=== PATIENT | female | born 1935 | race Caucasian/White ===

== ENCOUNTER 2018-08-29 18:16 | Inpatient (IN) | payer MEDICARE, MEDICAID ==
--- NOTE | 2018-08-29 18:36 | ED Physician Chart ---
ED Chief Complaint/HPI - Patient Information Date Seen:: 08/29/18 Time Seen:: 18:10 Chief Complaint:: Weakness History of Present Illness:: onset x 3 days of weakness and weight loss; no report of trauma, H/As, neck pain , C/P, SOB, Abd. Pain, A/N/V/D/C, fever, chills, or urinary s/s Allergies:: Allergies Allergy/AdvReac Type Severity Reaction Status Date / Time quinine Allergy Verified 08/29/18 18:26 Sulfa (Sulfonamide Allergy Verified 08/29/18 18:26 Antibiotics) Historian:: Patient, EMS Review:: Nurse's Note Reviewed, Old Chart Reviewed, EMS run form Reviewed ED Review of Systems - Review of Systems General/Constitutional: No fever, No chills, No weight loss, Weakness, No diaphoresis, No edema, No loss of appetite Skin: No skin lesions, No rash, No bruising Head: No headache, No light-headedness Eyes: No loss of vision, No pain, No diplopia ENT: No earache, No nasal drainage, No sore throat, No tinnitus Neck: No neck pain, No swelling, No thyromegaly, No stiffness, No mass noted Cardio Vascular: No chest pain, No palpitations, No PND, No orthopnea, No edema Pulmonary: No SOB, No cough, No sputum, No wheezing GI: No nausea, No vomiting, No diarrhea, No pain, No melena, No hematochezia, No constipation, No hematemesis G/U: No dysuria, No frequency, No hematuria, No nacturia Title I Instructional Assistant: No vaginal discharge, No abnormal vaginal bleed, No contraction Musculoskeletal: No bone or joint pain, No back pain, No muscle pain Endocrine: No polyuria, No polydipsia Psychiatric: Prior psych history, Depression, Anxiety, No suicidal ideation, No homicidal ideation, No auditory hallucination, No visual hallucination Hematopoietic: No bruising, No lymphadenopathy Allergic/Immuno: No urticaria, No angioedema Neurological: No syncope, No focal symptoms, Weakness, No paresthesia, No headache, No seizure, No dizziness, No confusion, No vertigo ED Past Medical History - Past Medical History Obtainable: Yes Past Medical History: HTN Family History: HTN Social History: Non Smoker, No Alcohol, No Drug Use, , Care Facility Surgical History: None Psychiatricy History: Bipolar Medication: Reviewed ED Physical Exam - Physical Examination General/Constitutional: Awake, Well-developed, well-nourished, Alert, No distress, GCS 15, Non-toxic appearing, Ambulatory Head: Atraumatic Eyes: Lids, conjuctiva normal, PERRL, EOMI Skin: Nl inspection, No rash, No skin lesions, No ecchymosis, Well hydrated, No lymphadenopathy ENMT: External ears, nose nl, TM canals nl, Nasal exam nl, Lips, teeth, gums nl , Oropharynx nl, Tonsils nl Neck: Nontender, Full ROM w/o pain, No JVD, No nuchal rigidity, No bruit, No mass, No stridor Respiratory: Nl effort/Exclusion, Clear to Auscultation, No Wheeze/Rhonchi/Rales Cardio Vascular: RRR, No murmur, gallop, rubs, NL S1 S2, Carotid/Femoral/Distal pulses equal bilaterally GI: No tenderness/rebounding/guarding, No organomegaly, No hernia, Normal BS's, Nondistended, No mass/bruits, No McBurney tenderness : No CVA tenderness Extremities: No tenderness or effusion, Full ROM, normal strength in all extremities, No edema, Normal digits & nails Neuro/Psych: Alert/oriented, DTR's symmetric, Normal sensory exam, Normal motor strength, Judgement/insight normal, Mood normal, Normal gait, No focal deficits Misc: Normal back, No paraspinal tenderness ED Septic Shock - . Is Septic Shock (SBP<90, OR Lactate>4 mmol\L) present?: No ED Reassessment (Disposition) - Reassessment Reassessment Condition:: Improved - Diagnosis Diagnosis:: Weight Loss; Weakness
[2018-08-29] MEDS ORDERED: Sodium Chloride 0.9% 1,000 ML IV ONE (18:37)
[2018-08-29 19:02] LABS: % BASOPHILS 0.8 % (0.0-2.0); % EOSINOPHILS 0.1 % (0.0-5.0); % LYMPHOCYTES 5.5 % (20.0-50.0); % MONOCYTES 5.6 % (2.0-10.0); BASOPHILE ABSOLUTE 0.1 Th/cumm (0-0.2); HEMATOCRIT 26.1 % (41.0-60); HEMOGLOBIN 8.7 gm/dL (12-16); LYMPHOCYTE ABSOLUTE 0.7 Th/cmm (1.5-3.0); MEAN CELL VOLUME 79.9 fl (81-100); MEAN CORPUSCULAR HEMOGLOBIN 26.7 pg (27.0-31.0); MEAN CORPUSCULAR HGB CONC 33.4 pg (28.0-36.0); MONOCYTE ABSOLUTE 0.7 Th/cmm (0.3-1.0); NEUTROPHILE ABSOLUTE 10.8 Th/cmm (1.8-8.0); PLATELET COUNT 569 Th/cmm (150-400); RED BLOOD COUNT 3.27 Mil/cmm (3.80-5.20); RED CELL DISTRIBUTION WIDTH 16.3 % (11.5-20.0); WHITE BLOOD COUNT 12.3 Th/cmm (4.8-10.8)
[2018-08-29 19:19] LABS: ALB/GLOB RATIO 0.7 (1.0-1.8); ALBUMIN 2.9 gm/dL (3.7-5.3); ALKALINE PHOSPHATASE 75 U/L (34-104); AMYLASE SERUM 20 U/L (29-103); ANION GAP 12.5 (7.0-16.0); BILIRUBIN,TOTAL 0.2 mg/dL (0.3-1.0); BUN - UREA NITROGEN 34 mg/dL (7-25); CALCIUM SERUM 9.5 mg/dL (8.6-10.3); CARBON DIOXIDE 24.6 mEq/L (21.0-31.0); CHLORIDE 100 mEq/L (98-107); CREATININE KINASE 158 U/L (30-223); GLUCOSE 142 mg/dL (70-105); LIPASE 7 U/L (11-82); POTASSIUM SERUM 4.1 mEq/L (3.5-5.1); SGOT 14 U/L (13-39); SGPT/ALT 9 U/L (7-52); SODIUM SERUM 133 mEq/L (136-145); TOTAL PROTEIN,SERUM 6.8 gm/dL (6.0-8.3)
[2018-08-29 19:20] LABS: URINE SOURCE MIDSTREAM
[2018-08-29 19:21] LABS: URINE BILIRUBIN NEGATIVE (NEGATIVE); URINE BLOOD NEGATIVE (NEGATIVE); URINE GLUCOSE (UA) NEGATIVE (NEGATIVE); URINE KETONE NEGATIVE (NEGATIVE); URINE LEUKOCYTE ESTERASE LARGE (NEGATIVE); URINE MICROSCOPIC INDICATED? YES; URINE NITRATE POSITIVE (NEGATIVE); URINE PH 5.5 (4.6 - 8.0); URINE PROTEIN TRACE mg/dL (NEGATIVE); URINE UROBILINOGEN 0.2 E.U./dL (0.2 - 1.0)
[2018-08-29 19:22] LABS: URINE COLOR YELLOW
[2018-08-29 19:24] LABS: URINE CLARITY CLOUDY (CLEAR)
[2018-08-29 19:27] LABS: URINE BACTERIA 4+ /hpf (NONE SEEN); URINE EPITHELIAL CELLS FEW /lpf (FEW); URINE WBC 50-100 /hpf (0-5)
[2018-08-29] MEDS ORDERED: cefTRIAXone 2 GM in Sodium Chloride 0.9% 100 ML IV ONE (19:29)
[2018-08-29 21:50] VITALS: BP 114/51
[2018-08-29] MEDS ORDERED: Ipratropium Neb 0.5 mg/2.5 mL UD HHN PRN (23:18)
[2018-08-29] MEDS ORDERED: Albuterol Nebulizer 2.5mg/3mL HHN PRN (23:18)
--- NOTE | 2018-08-30 00:01 | History & Physical ---
ADMIT DATE: 08/29/2018 CHIEF COMPLAINT: Generalized weakness. HISTORY OF PRESENT ILLNESS: This is an 83-year-old female with history of hypothyroidism, psych disorder, congestive heart failure, inflammatory bowel disorder, admitted from nursing facility secondary to not feeling well. The patient was brought in the ER, found to be dehydrated and she has urinary tract infection. The patient is admitted for further management. The patient is not a best historian. PAST MEDICAL HISTORY: As mentioned in history of present illness. PAST SURGICAL HISTORY: Unable to obtain from the patient. ALLERGIES: SULFA, QUININE. MEDICATIONS: Lasix, potassium, Tylenol, arginine, ascorbic acid, Cogentin, budesonide, hydralazine, Synthroid, pantoprazole, Seroquel, mesalamine. FAMILY HISTORY: Noncontributory. SOCIAL HISTORY: The patient lives in a assisted. The patient requiring 24-hour total care. REVIEW OF SYSTEMS: This is limited secondary to pain, comatose state. We will try to obtain more detailed review of system at a later date by talking to family members, Mario Milner who is the son ____ [phone], also try to get information from facility in [place], . PHYSICAL EXAMINATION: VITAL SIGNS: Blood pressure 140/81, respiration 18, pulse 84, temperature 98.3. GENERAL: Elderly female, appears her stated age. NECK: Supple. No mass. LUNGS: Equal breath sounds, few rhonchi. HEART: Regular rate and rhythm with systolic ejection murmur. ABDOMEN: Soft, globular. EXTREMITIES: Positive excoriation. NEUROLOGIC: Limited. LABORATORY DATA: WBC 12, hemoglobin 8.7, platelets 569. Sodium 133, potassium 4.1, BUN 34, creatinine 1.0, blood sugar 142, albumin 2.9. UA: 100 wbc's, 4+ bacteria. ASSESSMENT AND PLAN: Generalized weakness, UTI, leukocytosis, anemia, hyponatremia, renal insufficiency/dehydration, hyperglycemia, hypothyroidism and psychiatric disorder. Continue the patient on IV hydration. Monitor for any signs or symptoms of fluid overload. We will follow the patient's urine culture. We will monitor renal function. We will correct the patient's electrolyte abnormalities. We will review the patient's chest x-ray, follow blood culture. We will admit the patient to telemetry. [facility]# [id number]
[2018-08-30] MEDS: D5-0.45NS 1,000 ML IV SCH ×2 (00:22→12:38)
[2018-08-30] MEDS: Pantoprazole 40 mg EC Tab PO SCH (06:39)
[2018-08-30] MEDS: Levothyroxine 0.1 Mg Tab PO SCH (06:39)
[2018-08-30] MEDS: Budesonide 0.5 Mg/2 mL Ud HHN SCH (06:42)
[2018-08-30] MEDS: Benztropine 1 MG TAB PO SCH ×2 (08:54→16:15)
[2018-08-30] MEDS ORDERED: Non-Formulary Item 1 EA (Arginine/Ascorbate Sod/Vite Ac [Arginaid Powder] 1 PACKET) PO SCH (09:00)
[2018-08-30] MEDS ORDERED: MESALAMINE 1.5 GM PO SCH (09:00)
--- NOTE | 2018-08-30 10:18 | Diagnostic Imaging Report ---
Portable chest x-ray HISTORY: Pain The heart is enlarged. Atherosclerotic calcification seen in the aorta. Mild pleural reaction which appears chronic noted about the left costophrenic angle. No acute focal pulmonary parenchymal processes. IMPRESSION: 1. No definite acute abnormalities 2. Cardiomegaly with atherosclerotic vascular changes
--- NOTE | 2018-08-30 13:18 | Internal Medicine Prog Note ---
Internal Medicine Subjective - Subjective Patient seen and examined:: with staff, chart reviewed, other (son at bedside) Patient is:: asleep, non-verbal, non-interactive, in bed Patient Complaints of:: congestion Per staff patient has:: no adverse event, no episodes of fall, poor appetite, refusing care Internal Medicine Objective - Results Result Diagrams: 08/29/18 18:50 08/29/18 18:50 Recent Labs: Laboratory Last Values WBC 12.3 Th/cmm (4.8-10.8) H 08/29/18 18:50 RBC 3.27 Mil/cmm (3.80-5.20) L 08/29/18 18:50 Hgb 8.7 gm/dL (12-16) L 08/29/18 18:50 Hct 26.1 % (41.0-60) L 08/29/18 18:50 MCV 79.9 fl (81-100) L 08/29/18 18:50 MCH 26.7 pg (27.0-31.0) L 08/29/18 18:50 MCHC Differential 33.4 pg (28.0-36.0) 08/29/18 18:50 RDW 16.3 % (11.5-20.0) 08/29/18 18:50 Plt Count 569 Th/cmm (150-400) H 08/29/18 18:50 MPV 7.0 fl 08/29/18 18:50 Neutrophils % 88.0 % (40.0-80.0) H 08/29/18 18:50 Lymphocytes % 5.5 % (20.0-50.0) L 08/29/18 18:50 Monocytes % 5.6 % (2.0-10.0) 08/29/18 18:50 Eosinophils % 0.1 % (0.0-5.0) 08/29/18 18:50 Basophils % 0.8 % (0.0-2.0) 08/29/18 18:50 PT 10.4 SECONDS (9.5-11.5) 08/29/18 18:50 INR 1.00 (0.5-1.4) 08/29/18 18:50 PTT (Actin FS) 27.2 SECONDS (26.0-38.0) 08/29/18 18:50 Sodium 133 mEq/L (136-145) L 08/29/18 18:50 Potassium 4.1 mEq/L (3.5-5.1) 08/29/18 18:50 Chloride 100 mEq/L (98-107) 08/29/18 18:50 Carbon Dioxide 24.6 mEq/L (21.0-31.0) 08/29/18 18:50 Anion Gap 12.5 (7.0-16.0) 08/29/18 18:50 BUN 34 mg/dL (7-25) H 08/29/18 18:50 Creatinine 1.0 mg/dL (0.6-1.2) 08/29/18 18:50 Est GFR ( Amer) TNP 08/29/18 18:50 Est GFR (Non-Af Amer) TNP 08/29/18 18:50 BUN/Creatinine Ratio 34.0 08/29/18 18:50 Glucose 142 mg/dL (70-105) H 08/29/18 18:50 Whole Bld Lactic Acid 1.67 mmol/L (0.60-1.99) 08/29/18 18:50 Calcium 9.5 mg/dL (8.6-10.3) 08/29/18 18:50 Total Bilirubin 0.2 mg/dL (0.3-1.0) L 08/29/18 18:50 AST 14 U/L (13-39) 08/29/18 18:50 ALT 9 U/L (7-52) 08/29/18 18:50 Alkaline Phosphatase 75 U/L (34-104) 08/29/18 18:50 Creatine Kinase 158 U/L (30-223) 08/29/18 18:50 Troponin I 0.01 ng/mL (0.01-0.05) 08/29/18 18:50 Total Protein 6.8 gm/dL (6.0-8.3) 08/29/18 18:50 Albumin 2.9 gm/dL (3.7-5.3) L 08/29/18 18:50 Globulin 3.9 gm/dL 08/29/18 18:50 Albumin/Globulin Ratio 0.7 (1.0-1.8) L 08/29/18 18:50 Amylase 20 U/L (29-103) L 08/29/18 18:50 Lipase 7 U/L (11-82) L 08/29/18 18:50 Urine Source MIDSTREAM 08/29/18 19:15 Urine Color YELLOW 08/29/18 19:15 Urine Clarity CLOUDY (CLEAR) H 08/29/18 19:15 Urine pH 5.5 (4.6 - 8.0) 08/29/18 19:15 Ur Specific [place] 1.010 (1.005-1.030) 08/29/18 19:15 Urine Protein TRACE mg/dL (NEGATIVE) 08/29/18 19:15 Urine Glucose (UA) NEGATIVE mg/dL (NEGATIVE) 08/29/18 19:15 Urine Ketones NEGATIVE mg/dL (NEGATIVE) 08/29/18 19:15 Urine Blood NEGATIVE (NEGATIVE) 08/29/18 19:15 Urine Nitrate POSITIVE (NEGATIVE) H 08/29/18 19:15 Urine Bilirubin NEGATIVE (NEGATIVE) 08/29/18 19:15 Urine Urobilinogen 0.2 E.U./dL (0.2 - 1.0) 08/29/18 19:15 Ur Leukocyte Esterase LARGE (NEGATIVE) H 08/29/18 19:15 Urine RBC 2-5 /hpf (0-5) 08/29/18 19:15 Urine WBC 50-100 /hpf (0-5) H 08/29/18 19:15 Ur Epithelial Cells FEW /lpf (FEW) 08/29/18 19:15 Urine Bacteria 4+ /hpf (NONE SEEN) H 08/29/18 19:15 - Physical Exam Vitals and I&O: Vital Signs Temp 97.4 F 08/30/18 11:55 Pulse 71 08/30/18 12:03 Resp 18 08/30/18 11:55 BP 115/46 08/30/18 12:03 Pulse Ox 100 08/30/18 11:55 Intake & Output 08/29/18 08/30/18 08/30/18 18:59 06:59 18:59 Intake Total 981.333 Balance 981.333 Weight (lbs) 55.338 kg Intake: Intake, IV Amount 981.333 D5-0.45NS 1,000 ml @ 80 981.333 mls/hr IV .[id number] [facility] Rx #:[id number] Other: Weight Source Estimated Active Medications: Current Medications Acetaminophen (Tylenol) 650 mg PO Q4H PRN PRN Reason: Pain (Moderate) Stop: 10/29/18 01:02 Albuterol Sulfate (Albuterol 2.5mg/3ml Neb Ud) 2.5 mg HHN Q2HRT PRN PRN Reason: Shortness of Breath or Wheeze Stop: 10/28/18 23:17 Ascorbic Acid (Vitamin C) 500 mg PO DAILY [facility] Stop: 10/29/18 08:59 Last Admin: 08/30/18 08:54 Dose: 500 mg Benztropine Mesylate (Cogentin) 2 mg PO BID [facility] Stop: 10/29/18 08:59 Last Admin: 08/30/18 08:54 Dose: 2 mg Budesonide (Pulmicort) 0.25 mg HHN BIDRT [facility] Stop: 10/29/18 06:59 Last Admin: 08/30/18 06:42 Dose: 0.25 mg Hydralazine HCl (Apresoline) 50 mg PO Q12H [facility] Stop: 10/28/18 23:29 Last Admin: 08/30/18 12:03 Dose: Not Given Cefepime HCl 1 gm/ Dextrose 50 mls @ 100 mls/hr IV Q24H [facility]; Protocol Stop: 10/28/18 23:29 Last Admin: 08/30/18 00:24 Dose: 100 mls/hr Dextrose/Sodium Chloride (D5-0.45ns) 1,000 mls @ 80 mls/hr IV .[id number] [facility] Stop: 10/28/18 23:29 Last Admin: 08/30/18 12:38 Dose: 80 mls/hr Ipratropium [place] (Atrovent Neb 0.5mg/2.5ml) 0.5 mg HHN Q2HRT PRN PRN Reason: Shortness of Breath or Wheeze Stop: 10/28/18 23:17 Levothyroxine Sodium (Synthroid) 0.1 mg PO QDAC [facility] Stop: 10/29/18 07:29 Last Admin: 08/30/18 06:39 Dose: 0.1 mg Loperamide HCl (Imodium) 2 mg PO BID PRN PRN Reason: Diarrhea Stop: 10/28/18 23:15 Miscellaneous (Arginine/Ascorbate Sod/[place] Ac [Arginaid Powder]) 1 packet PO BID [facility] Stop: 10/29/18 08:59 Miscellaneous (Mesalamine [Apriso]) 1.5 gm PO DAILY [facility] Stop: 10/29/18 08:59 Ondansetron HCl (Zofran) 4 mg IV Q8H PRN PRN Reason: Nausea / Vomiting Stop: 10/28/18 23:17 Pantoprazole Sodium (Protonix) 40 mg PO QDAC [facility] Stop: 10/29/18 07:29 Last Admin: 08/30/18 06:39 Dose: 40 mg Quetiapine Fumarate (Seroquel) 25 mg PO HS [facility]; Protocol Stop: 10/29/18 20:59 Vitamin B Complex/Vit C/Folic Acid (Vitamin B Complex W/Vitamin C) 1 tab PO DAILY [facility] Stop: 10/29/18 08:59 General: lethargic, demented HEENT: NC/AT, PERRLA, EOMI Neck: Supple, No JVD Lungs: congested Cardiovascular: RRR, Normal S1, Normal S2, with murmur Abdomen: soft, non-tender, thin, non-distended, positive bowel sound Extremities: excoriation, contracture, ulcers stage 2 Neurological: no change, disorganized - Procedures Procedures: Procedures Procedure Code Date BUNIONECTOMY NEC 77.59 11/25/05 CORRECTION HALLUX VALGUS 32910 11/25/05 GROUP PSYCHOTHERAPY 15374 07/17/03 INDIVID PSYCHOTHERAP NEC 94.39 01/10/05 INTAC GROUP PSYTX 07735 07/16/00 OTHER GROUP THERAPY 94.44 11/02/10 RECREATIONAL THERAPY 93.81 11/02/10 Internal Medicine Assmt/Plan - Assessment Assessment: ASSESSMENT AND PLAN: Generalized weakness, UTI, leukocytosis, anemia, hyponatremia, renal insufficiency/dehydration, hyperglycemia, hypothyroidism and psychiatric disorder. - Plan Plan: PLAN: Continue the patient on IV hydration. Monitor for any signs or symptoms of fluid overload. We will follow the patient's urine culture. We will monitor renal function. We will correct the patient's electrolyte abnormalities. We will review the patient's chest x-ray, follow blood culture. We will admit the patient to telemetry. lolis self and son
[2018-08-30] MEDS: Multivitamin w/ Minerals Tab PO SCH (13:50)
[2018-08-30] MEDS: Vitamin B Complex w/Vitamin C Tab PO SCH (13:50)
--- NOTE | 2018-08-30 22:34 | Consultation ---
DATE OF CONSULTATION: 08/30/2018 INPATIENT GASTROINTESTINAL CONSULTATION REFERRING PHYSICIAN: Dr. Soliz. REASON FOR CONSULTATION: Ulcerative colitis. HISTORY OF PRESENT ILLNESS: This is an 83-year-old female with underlying history of dementia, who was admitted to the hospital because of generalized weakness, was found to have a urinary tract infection. The patient also has a recently diagnosed ulcerative colitis and we are asked to see the patient for the ulcerative colitis. She denies having any abdominal pain. She in fact was eating lunch. She denies any nausea, vomiting. Denies having any diarrhea, denies having any melena, hematochezia, hematemesis, or coffee ground emesis. PAST MEDICAL HISTORY: Hypothyroidism, psych disorder, dementia, congestive heart failure, ulcerative colitis. PAST SURGICAL HISTORY: None to add recently. FAMILY HISTORY: Noncontributory. SOCIAL HISTORY: No tobacco, alcohol or IV drug usage. ALLERGIES: SULFA AND QUININE. CURRENT MEDICATIONS: Tylenol, vitamin C, Cogentin, Pulmicort, cefepime, Apresoline, Atrovent, Synthroid, Imodium, Zofran, Protonix, Seroquel. REVIEW OF SYSTEMS: Ten point review of system was performed and the pertinent positive was the ulcerative colitis, generalized weakness and urinary tract infection. All the systems were otherwise negative. PHYSICAL EXAMINATION: VITAL SIGNS: Temperature 97.4, breathing 18, pulse of 71, blood pressure 115/46, satting 100%. GENERAL: In no apparent distress. EYES: Anicteric. Normal conjunctivae. HEENT: Normocephalic, atraumatic. Moist mucous membranes. NECK: Soft, supple. CHEST: Clear, normal effort. CARDIOVASCULAR: Regular rate and rhythm. ABDOMEN: Soft, nontender, nondistended and normal bowel sounds. SKIN: Warm, dry. EXTREMITIES: Reveal no cyanosis. PSYCHOLOGIC: Alert and oriented x 3. LABORATORY DATA: Show white count 12.3, hemoglobin 8.7, platelets of 569. INR 1. Creatinine 1. Total bilirubin within normal limits. Lipase within normal limits. Urinalysis shows leukocyte esterase positivity. IMPRESSION: An 83-year-old female with urinary tract infection by positive UA, is currently on antibiotics, has also newly diagnosed ulcerative colitis. The patient in the past had been maintained on Apriso. She recently had a colonoscopy approximately [address] Anderson in [place] and according to the son at bedside, the plan was to escalate therapy due to the severity of her disease. They have already picked up Entyvio as the medication and they are awaiting this medication. Unfortunately, this medication is not available here at this hospital, so I would recommend that the patient and family continue to wait. Moreover, the patient does not demonstrate any symptoms that would warrant emergent treatment, specifically she has no abdominal pain, she is tolerating a p.o. diet. She has no fevers. She has no diarrhea or bloody bowel movements and has no abdominal pain. The patient does have microcytic anemia, could be due to iron deficiency. The son tells me that they have outpatient arrangements for iron infusion as well. PLAN: 1. Continue with current management. 2. Keep appointment with Dr. Anderson, her gastrologist. 3. Continue and follow up for the Entyvio treatment and iron confusion. 4. Follow H and H. 5. Treat the urinary tract infection. Thank you for allowing me to participate. Please call me if any questions. JOB# [id number]
[2018-08-31] MEDS: D5-0.45NS 1,000 ML IV SCH ×3 (00:11→16:10)
[2018-08-31] MEDS: Levothyroxine 0.1 Mg Tab PO SCH (06:41)
[2018-08-31] MEDS: Pantoprazole 40 mg EC Tab PO SCH (06:41)
[2018-08-31 06:58] LABS: % BASOPHILS 0.5 % (0.0-2.0); % EOSINOPHILS 5.2 % (0.0-5.0); % LYMPHOCYTES 23.2 % (20.0-50.0); % MONOCYTES 14.6 % (2.0-10.0); % NEUTROPHILS 56.5 % (40.0-80.0); EOSINOPHILE ABSOLUTE 0.3 Th/cmm (0.1-0.4); HEMATOCRIT 22.8 % (41.0-60); LYMPHOCYTE ABSOLUTE 1.2 Th/cmm (1.5-3.0); MEAN CELL VOLUME 79.4 fl (81-100); MEAN CORPUSCULAR HEMOGLOBIN 26.5 pg (27.0-31.0); MEAN CORPUSCULAR HGB CONC 33.4 pg (28.0-36.0); MONOCYTE ABSOLUTE 0.8 Th/cmm (0.3-1.0); PLATELET COUNT 465 Th/cmm (150-400); RED BLOOD COUNT 2.87 Mil/cmm (3.80-5.20); RED CELL DISTRIBUTION WIDTH 15.9 % (11.5-20.0); WHITE BLOOD COUNT 5.3 Th/cmm (4.8-10.8)
[2018-08-31 07:00] LABS: ALB/GLOB RATIO 0.7 (1.0-1.8); ALBUMIN 2.3 gm/dL (3.7-5.3); ALKALINE PHOSPHATASE 56 U/L (34-104); ANION GAP 8.7 (7.0-16.0); BILIRUBIN,TOTAL 0.2 mg/dL (0.3-1.0); BUN - UREA NITROGEN 24 mg/dL (7-25); CALCIUM SERUM 8.9 mg/dL (8.6-10.3); CARBON DIOXIDE 24.2 mEq/L (21.0-31.0); CHLORIDE 106 mEq/L (98-107); CREATININE - SERUM 0.9 mg/dL (0.6-1.2); GLUCOSE 86 mg/dL (70-105); HEMOGLOBIN 7.6 gm/dL (12-16); POTASSIUM SERUM 3.9 mEq/L (3.5-5.1); SGOT 12 U/L (13-39); SGPT/ALT 6 U/L (7-52); SODIUM SERUM 135 mEq/L (136-145); TOTAL PROTEIN,SERUM 5.5 gm/dL (6.0-8.3)
[2018-08-31] MEDS: Budesonide 0.5 Mg/2 mL Ud HHN SCH ×2 (07:18→19:09)
[2018-08-31] MEDS: Vitamin B Complex w/Vitamin C Tab PO SCH (08:28)
[2018-08-31] MEDS: Benztropine 1 MG TAB PO SCH ×2 (08:29→16:10)
[2018-08-31] MEDS: Mesalamine 250 mg ER Cap PO SCH (08:29)
[2018-08-31] MEDS: Multivitamin w/ Minerals Tab PO SCH (08:29)
--- NOTE | 2018-08-31 10:38 | GI Progress Note ---
Subjective - Review of Systems Subjective: NO REPORTS OF DIARRHEA PER STAFF PT DENIES ABD PAIN GI OBJECTIVE - Results Result Diagrams: 08/31/18 06:00 08/31/18 06:00 Recent Labs: Laboratory Last Values WBC 5.3 Th/cmm (4.8-10.8) 08/31/18 06:00 RBC 2.87 Mil/cmm (3.80-5.20) L 08/31/18 06:00 Hgb 7.6 gm/dL (12-16) L* 08/31/18 06:00 Hct 22.8 % (41.0-60) L 08/31/18 06:00 MCV 79.4 fl (81-100) L 08/31/18 06:00 MCH 26.5 pg (27.0-31.0) L 08/31/18 06:00 MCHC Differential 33.4 pg (28.0-36.0) 08/31/18 06:00 RDW 15.9 % (11.5-20.0) 08/31/18 06:00 Plt Count 465 Th/cmm (150-400) H 08/31/18 06:00 MPV 6.8 fl 08/31/18 06:00 Neutrophils % 56.5 % (40.0-80.0) 08/31/18 06:00 Lymphocytes % 23.2 % (20.0-50.0) 08/31/18 06:00 Monocytes % 14.6 % (2.0-10.0) H 08/31/18 06:00 Eosinophils % 5.2 % (0.0-5.0) H 08/31/18 06:00 Basophils % 0.5 % (0.0-2.0) 08/31/18 06:00 PT 10.4 SECONDS (9.5-11.5) 08/29/18 18:50 INR 1.00 (0.5-1.4) 08/29/18 18:50 PTT (Actin FS) 27.2 SECONDS (26.0-38.0) 08/29/18 18:50 Sodium 135 mEq/L (136-145) L 08/31/18 06:00 Potassium 3.9 mEq/L (3.5-5.1) 08/31/18 06:00 Chloride 106 mEq/L (98-107) 08/31/18 06:00 Carbon Dioxide 24.2 mEq/L (21.0-31.0) 08/31/18 06:00 Anion Gap 8.7 (7.0-16.0) 08/31/18 06:00 BUN 24 mg/dL (7-25) 08/31/18 06:00 Creatinine 0.9 mg/dL (0.6-1.2) 08/31/18 06:00 Est GFR ( Amer) TNP 08/31/18 06:00 Est GFR (Non-Af Amer) TNP 08/31/18 06:00 BUN/Creatinine Ratio 26.7 08/31/18 06:00 Glucose 86 mg/dL (70-105) 08/31/18 06:00 Whole Bld Lactic Acid 1.67 mmol/L (0.60-1.99) 08/29/18 18:50 Calcium 8.9 mg/dL (8.6-10.3) 08/31/18 06:00 Total Bilirubin 0.2 mg/dL (0.3-1.0) L 08/31/18 06:00 AST 12 U/L (13-39) L 08/31/18 06:00 ALT 6 U/L (7-52) L 08/31/18 06:00 Alkaline Phosphatase 56 U/L (34-104) 08/31/18 06:00 Ammonia 26 umol/L (16-53) 08/31/18 06:00 Creatine Kinase 158 U/L (30-223) 08/29/18 18:50 Troponin I 0.01 ng/mL (0.01-0.05) 08/29/18 18:50 B-Natriuretic Peptide 164.0 pg/mL (5.0-100.0) H 08/31/18 06:00 Total Protein 5.5 gm/dL (6.0-8.3) L 08/31/18 06:00 Albumin 2.3 gm/dL (3.7-5.3) L 08/31/18 06:00 Globulin 3.2 gm/dL 08/31/18 06:00 Albumin/Globulin Ratio 0.7 (1.0-1.8) L 08/31/18 06:00 Amylase 20 U/L (29-103) L 08/29/18 18:50 Lipase 7 U/L (11-82) L 08/29/18 18:50 Urine Source MIDSTREAM 08/29/18 19:15 Urine Color YELLOW 08/29/18 19:15 Urine Clarity CLOUDY (CLEAR) H 08/29/18 19:15 Urine pH 5.5 (4.6 - 8.0) 08/29/18 19:15 Ur Specific [place] 1.010 (1.005-1.030) 08/29/18 19:15 Urine Protein TRACE mg/dL (NEGATIVE) 08/29/18 19:15 Urine Glucose (UA) NEGATIVE mg/dL (NEGATIVE) 08/29/18 19:15 Urine Ketones NEGATIVE mg/dL (NEGATIVE) 08/29/18 19:15 Urine Blood NEGATIVE (NEGATIVE) 08/29/18 19:15 Urine Nitrate POSITIVE (NEGATIVE) H 08/29/18 19:15 Urine Bilirubin NEGATIVE (NEGATIVE) 08/29/18 19:15 Urine Urobilinogen 0.2 E.U./dL (0.2 - 1.0) 08/29/18 19:15 Ur Leukocyte Esterase LARGE (NEGATIVE) H 08/29/18 19:15 Urine RBC 2-5 /hpf (0-5) 08/29/18 19:15 Urine WBC 50-100 /hpf (0-5) H 08/29/18 19:15 Ur Epithelial Cells FEW /lpf (FEW) 08/29/18 19:15 Urine Bacteria 4+ /hpf (NONE SEEN) H 08/29/18 19:15 - Physical Exam Vitals and I&O: Vital Signs Temp 97 F 08/31/18 08:00 Pulse 61 08/31/18 08:00 Resp 17 08/31/18 08:00 BP 163/73 08/31/18 08:00 Pulse Ox 98 08/31/18 08:00 Intake & Output 08/30/18 08/31/18 08/31/18 18:59 06:59 18:59 Intake Total 561.872 2904 Balance 290.824 4318 Weight (lbs) 60.328 kg Intake: Intake, IV Amount 981.333 974 Cefepime 1 gm In Dextrose 50 5% 50 ml @ 100 mls/hr IV Q24H [facility] Rx#:[id number] D5-0.45NS 1,000 ml @ 80 981.333 924 mls/hr IV .[id number] [facility] Rx #:[id number] Oral 120 Other: # Voids 3 Stool Characteristics Soft Formed Brown Weight Source Bedscale Active Medications: Current Medications Acetaminophen (Tylenol) 650 mg PO Q4H PRN PRN Reason: Pain (Moderate) Stop: 10/29/18 01:02 Albuterol Sulfate (Albuterol 2.5mg/3ml Neb Ud) 2.5 mg HHN Q2HRT PRN PRN Reason: Shortness of Breath or Wheeze Stop: 10/28/18 23:17 Ascorbic Acid (Vitamin C) 500 mg PO DAILY [facility] Stop: 10/29/18 08:59 Last Admin: 08/31/18 08:29 Dose: 500 mg Benztropine Mesylate (Cogentin) 2 mg PO BID [facility] Stop: 10/29/18 08:59 Last Admin: 08/31/18 08:29 Dose: 2 mg Budesonide (Pulmicort) 0.25 mg HHN BIDRT [facility] Stop: 10/29/18 06:59 Last Admin: 08/31/18 07:18 Dose: 0.25 mg Hydralazine HCl (Apresoline) 50 mg PO Q12H [facility] Stop: 10/28/18 23:29 Last Admin: 08/31/18 00:16 Dose: 50 mg Cefepime HCl 1 gm/ Dextrose 50 mls @ 100 mls/hr IV Q24H [facility]; Protocol Stop: 10/28/18 23:29 Last Infusion: 08/31/18 00:34 Dose: Infused Dextrose/Sodium Chloride (D5-0.45ns) 1,000 mls @ 80 mls/hr IV .[id number] [facility] Stop: 10/28/18 23:29 Last Admin: 08/31/18 00:11 Dose: 80 mls/hr Ipratropium [place] (Atrovent Neb 0.5mg/2.5ml) 0.5 mg HHN Q2HRT PRN PRN Reason: Shortness of Breath or Wheeze Stop: 10/28/18 23:17 Levothyroxine Sodium (Synthroid) 0.1 mg PO QDAC [facility] Stop: 10/29/18 07:29 Last Admin: 08/31/18 06:41 Dose: 0.1 mg Loperamide HCl (Imodium) 2 mg PO BID PRN PRN Reason: Diarrhea Stop: 10/28/18 23:15 Mesalamine (Pentasa) 1,500 mg PO DAILY [facility] Stop: 10/30/18 08:59 Last Admin: 08/31/18 08:29 Dose: 1,500 mg Ondansetron HCl (Zofran) 4 mg IV Q8H PRN PRN Reason: Nausea / Vomiting Stop: 10/28/18 23:17 Pantoprazole Sodium (Protonix) 40 mg PO QDAC [facility] Stop: 10/29/18 07:29 Last Admin: 08/31/18 06:41 Dose: 40 mg Quetiapine Fumarate (Seroquel) 25 mg PO HS [facility]; Protocol Stop: 10/29/18 20:59 Last Admin: 08/30/18 20:18 Dose: 25 mg Vitamin B Complex/Vit C/Folic Acid (Vitamin B Complex W/Vitamin C) 1 tab PO DAILY [facility] Stop: 10/29/18 08:59 Last Admin: 08/31/18 08:28 Dose: 1 tab - Procedures Procedures: Procedures Procedure Code Date BUNIONECTOMY NEC 77.59 11/25/05 CORRECTION HALLUX VALGUS 78846 11/25/05 GROUP PSYCHOTHERAPY 04768 07/17/03 INDIVID PSYCHOTHERAP NEC 94.39 01/10/05 INTAC GROUP PSYTX 33712 07/16/00 OTHER GROUP THERAPY 94.44 11/02/10 RECREATIONAL THERAPY 93.81 11/02/10 Assessment/Plan - Assessment Assessment: 83 YO FEMALE WITH NEWLY DIAGNOSED ULCERATIVE COLITIS SEEING OUTSIDE GI WHO HAS SET THE PT UP TO RECEIVE ENTYVIO AND IRON INFUSION CLINICALLY SEEMS TO BE STABLE 1.KEEP OUTPATIENT APPT WITH DR GAYLE (PT'S GI DOC) 2.CONT SUPP CARE AND TREAT UTI PER HOSPITALIST 3.FOLLOW H/H; TRANSFUSE PRN 4.WILL SEE NEEDED; CALL IF QUESTIONS
--- NOTE | 2018-08-31 15:26 | Internal Medicine Prog Note ---
Internal Medicine Subjective - Subjective Patient seen and examined:: with staff, chart reviewed Patient is:: asleep, non-verbal, non-interactive, in bed Patient Complaints of:: congestion Per staff patient has:: no adverse event, no episodes of fall, poor appetite, refusing care Internal Medicine Objective - Results Result Diagrams: 08/31/18 06:00 08/31/18 06:00 Recent Labs: Laboratory Last Values WBC 5.3 Th/cmm (4.8-10.8) 08/31/18 06:00 RBC 2.87 Mil/cmm (3.80-5.20) L 08/31/18 06:00 Hgb 7.6 gm/dL (12-16) L* 08/31/18 06:00 Hct 22.8 % (41.0-60) L 08/31/18 06:00 MCV 79.4 fl (81-100) L 08/31/18 06:00 MCH 26.5 pg (27.0-31.0) L 08/31/18 06:00 MCHC Differential 33.4 pg (28.0-36.0) 08/31/18 06:00 RDW 15.9 % (11.5-20.0) 08/31/18 06:00 Plt Count 465 Th/cmm (150-400) H 08/31/18 06:00 MPV 6.8 fl 08/31/18 06:00 Neutrophils % 56.5 % (40.0-80.0) 08/31/18 06:00 Lymphocytes % 23.2 % (20.0-50.0) 08/31/18 06:00 Monocytes % 14.6 % (2.0-10.0) H 08/31/18 06:00 Eosinophils % 5.2 % (0.0-5.0) H 08/31/18 06:00 Basophils % 0.5 % (0.0-2.0) 08/31/18 06:00 PT 10.4 SECONDS (9.5-11.5) 08/29/18 18:50 INR 1.00 (0.5-1.4) 08/29/18 18:50 PTT (Actin FS) 27.2 SECONDS (26.0-38.0) 08/29/18 18:50 Sodium 135 mEq/L (136-145) L 08/31/18 06:00 Potassium 3.9 mEq/L (3.5-5.1) 08/31/18 06:00 Chloride 106 mEq/L (98-107) 08/31/18 06:00 Carbon Dioxide 24.2 mEq/L (21.0-31.0) 08/31/18 06:00 Anion Gap 8.7 (7.0-16.0) 08/31/18 06:00 BUN 24 mg/dL (7-25) 08/31/18 06:00 Creatinine 0.9 mg/dL (0.6-1.2) 08/31/18 06:00 Est GFR ( Amer) TNP 08/31/18 06:00 Est GFR (Non-Af Amer) TNP 08/31/18 06:00 BUN/Creatinine Ratio 26.7 08/31/18 06:00 Glucose 86 mg/dL (70-105) 08/31/18 06:00 Whole Bld Lactic Acid 1.67 mmol/L (0.60-1.99) 08/29/18 18:50 Calcium 8.9 mg/dL (8.6-10.3) 08/31/18 06:00 Total Bilirubin 0.2 mg/dL (0.3-1.0) L 08/31/18 06:00 AST 12 U/L (13-39) L 08/31/18 06:00 ALT 6 U/L (7-52) L 08/31/18 06:00 Alkaline Phosphatase 56 U/L (34-104) 08/31/18 06:00 Ammonia 26 umol/L (16-53) 08/31/18 06:00 Creatine Kinase 158 U/L (30-223) 08/29/18 18:50 Troponin I 0.01 ng/mL (0.01-0.05) 08/29/18 18:50 B-Natriuretic Peptide 164.0 pg/mL (5.0-100.0) H 08/31/18 06:00 Total Protein 5.5 gm/dL (6.0-8.3) L 08/31/18 06:00 Albumin 2.3 gm/dL (3.7-5.3) L 08/31/18 06:00 Globulin 3.2 gm/dL 08/31/18 06:00 Albumin/Globulin Ratio 0.7 (1.0-1.8) L 08/31/18 06:00 Amylase 20 U/L (29-103) L 08/29/18 18:50 Lipase 7 U/L (11-82) L 08/29/18 18:50 Urine Source MIDSTREAM 08/29/18 19:15 Urine Color YELLOW 08/29/18 19:15 Urine Clarity CLOUDY (CLEAR) H 08/29/18 19:15 Urine pH 5.5 (4.6 - 8.0) 08/29/18 19:15 Ur Specific [place] 1.010 (1.005-1.030) 08/29/18 19:15 Urine Protein TRACE mg/dL (NEGATIVE) 08/29/18 19:15 Urine Glucose (UA) NEGATIVE mg/dL (NEGATIVE) 08/29/18 19:15 Urine Ketones NEGATIVE mg/dL (NEGATIVE) 08/29/18 19:15 Urine Blood NEGATIVE (NEGATIVE) 08/29/18 19:15 Urine Nitrate POSITIVE (NEGATIVE) H 08/29/18 19:15 Urine Bilirubin NEGATIVE (NEGATIVE) 08/29/18 19:15 Urine Urobilinogen 0.2 E.U./dL (0.2 - 1.0) 08/29/18 19:15 Ur Leukocyte Esterase LARGE (NEGATIVE) H 08/29/18 19:15 Urine RBC 2-5 /hpf (0-5) 08/29/18 19:15 Urine WBC 50-100 /hpf (0-5) H 08/29/18 19:15 Ur Epithelial Cells FEW /lpf (FEW) 08/29/18 19:15 Urine Bacteria 4+ /hpf (NONE SEEN) H 08/29/18 19:15 - Physical Exam Vitals and I&O: Vital Signs Temp 97.6 F 08/31/18 11:40 Pulse 63 08/31/18 12:34 Resp 18 08/31/18 11:40 BP 124/52 08/31/18 12:34 Pulse Ox 97 08/31/18 11:40 Intake & Output 08/30/18 08/31/18 08/31/18 18:59 06:59 18:59 Intake Total 059.052 9002 992 Balance 865.406 6297 992 Weight (lbs) 60.328 kg Intake: Intake, IV Amount 981.333 974 992 Cefepime 1 gm In Dextrose 50 5% 50 ml @ 100 mls/hr IV Q24H [facility] Rx#:[id number] D5-0.45NS 1,000 ml @ 80 981.333 924 992 mls/hr IV .[id number] [facility] Rx #:[id number] Oral 120 Other: # Voids 3 Stool Characteristics Soft Formed Brown Weight Source Bedscale Active Medications: Current Medications Acetaminophen (Tylenol) 650 mg PO Q4H PRN PRN Reason: Pain (Moderate) Stop: 10/29/18 01:02 Albuterol Sulfate (Albuterol 2.5mg/3ml Neb Ud) 2.5 mg HHN Q2HRT PRN PRN Reason: Shortness of Breath or Wheeze Stop: 10/28/18 23:17 Ascorbic Acid (Vitamin C) 500 mg PO DAILY [facility] Stop: 10/29/18 08:59 Last Admin: 08/31/18 08:29 Dose: 500 mg Benztropine Mesylate (Cogentin) 2 mg PO BID [facility] Stop: 10/29/18 08:59 Last Admin: 08/31/18 08:29 Dose: 2 mg Budesonide (Pulmicort) 0.25 mg HHN BIDRT [facility] Stop: 10/29/18 06:59 Last Admin: 08/31/18 07:18 Dose: 0.25 mg Hydralazine HCl (Apresoline) 50 mg PO Q12H [facility] Stop: 10/28/18 23:29 Last Admin: 08/31/18 12:34 Dose: 50 mg Cefepime HCl 1 gm/ Dextrose 50 mls @ 100 mls/hr IV Q24H [facility]; Protocol Stop: 10/28/18 23:29 Last Infusion: 08/31/18 00:34 Dose: Infused Ferric Sodium Gluconate Complex 125 mg/ Sodium Chloride 110 mls @ 100 mls/hr IV Q24HR [facility] Stop: 09/08/18 15:29 Dextrose/Sodium Chloride (D5-0.45ns) 1,000 mls @ 50 mls/hr IV .Q20H [facility] Stop: 10/30/18 15:29 Ipratropium [place] (Atrovent Neb 0.5mg/2.5ml) 0.5 mg HHN Q2HRT PRN PRN Reason: Shortness of Breath or Wheeze Stop: 10/28/18 23:17 Levothyroxine Sodium (Synthroid) 0.1 mg PO QDAC [facility] Stop: 10/29/18 07:29 Last Admin: 08/31/18 06:41 Dose: 0.1 mg Loperamide HCl (Imodium) 2 mg PO BID PRN PRN Reason: Diarrhea Stop: 10/28/18 23:15 Mesalamine (Pentasa) 1,500 mg PO DAILY [facility] Stop: 10/30/18 08:59 Last Admin: 08/31/18 08:29 Dose: 1,500 mg Ondansetron HCl (Zofran) 4 mg IV Q8H PRN PRN Reason: Nausea / Vomiting Stop: 10/28/18 23:17 Pantoprazole Sodium (Protonix) 40 mg PO QDAC [facility] Stop: 10/29/18 07:29 Last Admin: 08/31/18 06:41 Dose: 40 mg Quetiapine Fumarate (Seroquel) 25 mg PO HS [facility]; Protocol Stop: 10/29/18 20:59 Last Admin: 08/30/18 20:18 Dose: 25 mg Vitamin B Complex/Vit C/Folic Acid (Vitamin B Complex W/Vitamin C) 1 tab PO DAILY [facility] Stop: 10/29/18 08:59 Last Admin: 08/31/18 08:28 Dose: 1 tab General: lethargic, demented HEENT: NC/AT, PERRLA, EOMI Neck: Supple, No JVD Lungs: congested Cardiovascular: RRR, Normal S1, Normal S2, with murmur Abdomen: soft, non-tender, thin, non-distended, positive bowel sound Extremities: excoriation, contracture, ulcers stage 2 Neurological: no change, disorganized - Procedures Procedures: Procedures Procedure Code Date BUNIONECTOMY NEC 77.59 11/25/05 CORRECTION HALLUX VALGUS 39343 11/25/05 GROUP PSYCHOTHERAPY 17754 07/17/03 INDIVID PSYCHOTHERAP NEC 94.39 01/10/05 INTAC GROUP PSYTX 82575 07/16/00 OTHER GROUP THERAPY 94.44 11/02/10 RECREATIONAL THERAPY 93.81 11/02/10 Internal Medicine Assmt/Plan - Assessment Assessment: ASSESSMENT AND PLAN: Generalized weakness, UTI, leukocytosis, anemia, hyponatremia, renal insufficiency/dehydration, hyperglycemia, hypothyroidism and psychiatric disorder. - Plan Plan: PLAN: Continue the patient on IV hydration. Monitor for any signs or symptoms of fluid overload. We will follow the patient's urine culture. We will monitor renal function. We will correct the patient's electrolyte abnormalities. We will review the patient's chest x-ray, follow blood culture. We will admit the patient to telemetry. lolis self and son Nutritional Asmnt/Malnutr-PDOC - Dietary Evaluation Malnutrition Findings (Please click <Entered> for more info): Nutritional Asmnt/Malnutrition Start: 08/30/18 13: 33 Text: Status: Active Freq: Protocol: Document 08/30/18 14:02 LORIN (Rec: 08/30/18 14:08 LORIN [email or web address]) Nutritional Asmnt/Malnutrition Patient General Information Nutritional Screening High Risk Diagnosis UTI, Dehydration Pertinent Medical Hx/Surgical Hx HTN, Hypothyroidism, Psych Disorder, CHF, Inflammatory Bowel Disorder Subjective Information IA screening was at high risk. Pt f/u downgraded to low risk d/t adequate PO intake and tolerance to meal/diet order. Pt is a 83 year old female admitted from nursing facility c/o generalized weakness x 3 days. Per VARNISH MIXER (Chel), Pt ate 80% Breakfast and 50% lunch today. HT: 54 WT: 122 LB (55.45 KG) BMI: 20.94 (Normal) GI: WNL, Flat, Soft, Non- Tender BM: Not Noted I/O: 981.333/Not Noted Skin: Warm, dry, Elastic Wound: Skin tear on coccyx Chavez: 13 Diet Order: Soft Estimated Energy Needs: ( Geriatric, CBW) 5690-0313 KCALS (25-30 KCALS/ KG) 55-67 G PRO (1.0-1.2 G/KG) 0587-1775 ML (25-30 ML/KG) Current Diet Order/ Nutrition Support Soft Pertinent Medications Albuterol (PRN), Vit C, D5-0. 45ns 1000mls @80 mls/hr IV Q 12H30M, Synthroid, Zofran (PRN ), Protonix, Vit B Complex w/ Vit-C Pertinent Labs 7/24 Hgb/Hct: 8.7/26.1, Na 133 , BUN/Cr 34/1.0, Glucose 142, Alb 2.9 Nutritional Hx/Data Height 1.63 m Height (Calculated Centimeters) 162.6 Current Weight (lbs) 55.338 kg Weight (Calculated Kilograms) 55.3 Weight (Calculated Grams) 38332.3 [place] Body Weight 54.7 KG % [place] Body Weight 101 Body Mass Index (BMI) 20.9 Weight Status Approriate GI Symptoms GI Symptoms None Last BM BM: Not Noted Skin Integrity/Comment: Warm, dry, Elastic Current %PO Fair (50-74%) Estimated Nutritional Goals BEE in Kcals: Using Current wt Calories/Kcals/Kg 25-30 Kcals Calculated 0749-0675 Protein: Using Current wt Protein g/k.0-1.2 Protein Calculated 55-67 Fluid: ml 4528-0565 ML (25-30 ML/KG) Nutritional Problem 1. Problem Problem Altered Nutrition Related Labs Etiology possible dehydration Signs/Symptoms: Labs Result on 08/29/18 Na 133, BUN 34, Glucose 142 Malnutrition Related to Morbid Obesity Malnutrition related to morbid obesity No Intervention/Recommendation Comments 1. Continue with soft diet as ordered. Expected Outcomes/Goals Expected Outcomes/Goals 1.PO intake to meet 75% of nutritional needs. 2.Monitor PO intake, wt, skin integrity, nutrition related labs to trend WNL. 3.F/U as low risk in 7 days,
[2018-08-31] MEDS: Sodium Ferric Gluconate 125 MG in Sodium Chloride 0.9% 100 ML IV SCH (16:10)
[2018-09-01] MEDS ORDERED: Piperacillin Sodium/Tazobact 3.375 gm Vial IV ONE ×2 (00:10→05:11)
[2018-09-01 06:26] LABS: % BASOPHILS 0.2 % (0.0-2.0); % EOSINOPHILS 3.2 % (0.0-5.0); % LYMPHOCYTES 14.6 % (20.0-50.0); % MONOCYTES 12.5 % (2.0-10.0); % NEUTROPHILS 69.5 % (40.0-80.0); EOSINOPHILE ABSOLUTE 0.2 Th/cmm (0.1-0.4); HEMATOCRIT 24.2 % (41.0-60); HEMOGLOBIN 8.1 gm/dL (12-16); LYMPHOCYTE ABSOLUTE 0.9 Th/cmm (1.5-3.0); MEAN CELL VOLUME 79.3 fl (81-100); MEAN CORPUSCULAR HEMOGLOBIN 26.6 pg (27.0-31.0); MEAN CORPUSCULAR HGB CONC 33.5 pg (28.0-36.0); MONOCYTE ABSOLUTE 0.8 Th/cmm (0.3-1.0); NEUTROPHILE ABSOLUTE 4.5 Th/cmm (1.8-8.0); PLATELET COUNT 497 Th/cmm (150-400); RED BLOOD COUNT 3.05 Mil/cmm (3.80-5.20); RED CELL DISTRIBUTION WIDTH 15.9 % (11.5-20.0); WHITE BLOOD COUNT 6.4 Th/cmm (4.8-10.8)
[2018-09-01] MEDS: Levothyroxine 0.1 Mg Tab PO SCH (06:48)
[2018-09-01] MEDS: Pantoprazole 40 mg EC Tab PO SCH (06:48)
[2018-09-01 06:49] LABS: ANION GAP 9.6 (7.0-16.0); BUN - UREA NITROGEN 18 mg/dL (7-25); CALCIUM SERUM 9.1 mg/dL (8.6-10.3); CARBON DIOXIDE 21.9 mEq/L (21.0-31.0); CHLORIDE 105 mEq/L (98-107); CREATININE - SERUM 0.8 mg/dL (0.6-1.2); GLUCOSE 86 mg/dL (70-105); POTASSIUM SERUM 3.5 mEq/L (3.5-5.1); SODIUM SERUM 133 mEq/L (136-145)
[2018-09-01] MEDS: Budesonide 0.5 Mg/2 mL Ud HHN SCH ×2 (07:51→18:28)
--- NOTE | 2018-09-01 08:57 | Internal Medicine Prog Note ---
Internal Medicine Subjective - Subjective Patient seen and examined:: with staff, chart reviewed Patient is:: asleep, non-verbal, non-interactive, in bed Patient Complaints of:: congestion Per staff patient has:: no adverse event, no episodes of fall, poor appetite, refusing care Internal Medicine Objective - Results Result Diagrams: 09/01/18 06:15 09/01/18 06:15 Recent Labs: Laboratory Last Values WBC 6.4 Th/cmm (4.8-10.8) 09/01/18 06:15 RBC 3.05 Mil/cmm (3.80-5.20) L 09/01/18 06:15 Hgb 8.1 gm/dL (12-16) L 09/01/18 06:15 Hct 24.2 % (41.0-60) L 09/01/18 06:15 MCV 79.3 fl (81-100) L 09/01/18 06:15 MCH 26.6 pg (27.0-31.0) L 09/01/18 06:15 MCHC Differential 33.5 pg (28.0-36.0) 09/01/18 06:15 RDW 15.9 % (11.5-20.0) 09/01/18 06:15 Plt Count 497 Th/cmm (150-400) H 09/01/18 06:15 MPV 6.3 fl 09/01/18 06:15 Neutrophils % 69.5 % (40.0-80.0) 09/01/18 06:15 Lymphocytes % 14.6 % (20.0-50.0) L 09/01/18 06:15 Monocytes % 12.5 % (2.0-10.0) H 09/01/18 06:15 Eosinophils % 3.2 % (0.0-5.0) 09/01/18 06:15 Basophils % 0.2 % (0.0-2.0) 09/01/18 06:15 PT 10.4 SECONDS (9.5-11.5) 08/29/18 18:50 INR 1.00 (0.5-1.4) 08/29/18 18:50 PTT (Actin FS) 27.2 SECONDS (26.0-38.0) 08/29/18 18:50 Sodium 133 mEq/L (136-145) L 09/01/18 06:15 Potassium 3.5 mEq/L (3.5-5.1) 09/01/18 06:15 Chloride 105 mEq/L (98-107) 09/01/18 06:15 Carbon Dioxide 21.9 mEq/L (21.0-31.0) 09/01/18 06:15 Anion Gap 9.6 (7.0-16.0) 09/01/18 06:15 BUN 18 mg/dL (7-25) 09/01/18 06:15 Creatinine 0.8 mg/dL (0.6-1.2) 09/01/18 06:15 Est GFR ( Amer) TNP 09/01/18 06:15 Est GFR (Non-Af Amer) TNP 09/01/18 06:15 BUN/Creatinine Ratio 22.5 09/01/18 06:15 Glucose 86 mg/dL (70-105) 09/01/18 06:15 Whole Bld Lactic Acid 1.67 mmol/L (0.60-1.99) 08/29/18 18:50 Calcium 9.1 mg/dL (8.6-10.3) 09/01/18 06:15 Total Bilirubin 0.2 mg/dL (0.3-1.0) L 08/31/18 06:00 AST 12 U/L (13-39) L 08/31/18 06:00 ALT 6 U/L (7-52) L 08/31/18 06:00 Alkaline Phosphatase 56 U/L (34-104) 08/31/18 06:00 Ammonia 26 umol/L (16-53) 08/31/18 06:00 Creatine Kinase 158 U/L (30-223) 08/29/18 18:50 Troponin I 0.01 ng/mL (0.01-0.05) 08/29/18 18:50 B-Natriuretic Peptide 164.0 pg/mL (5.0-100.0) H 08/31/18 06:00 Total Protein 5.5 gm/dL (6.0-8.3) L 08/31/18 06:00 Albumin 2.3 gm/dL (3.7-5.3) L 08/31/18 06:00 Globulin 3.2 gm/dL 08/31/18 06:00 Albumin/Globulin Ratio 0.7 (1.0-1.8) L 08/31/18 06:00 Amylase 20 U/L (29-103) L 08/29/18 18:50 Lipase 7 U/L (11-82) L 08/29/18 18:50 Urine Source MIDSTREAM 08/29/18 19:15 Urine Color YELLOW 08/29/18 19:15 Urine Clarity CLOUDY (CLEAR) H 08/29/18 19:15 Urine pH 5.5 (4.6 - 8.0) 08/29/18 19:15 Ur Specific [place] 1.010 (1.005-1.030) 08/29/18 19:15 Urine Protein TRACE mg/dL (NEGATIVE) 08/29/18 19:15 Urine Glucose (UA) NEGATIVE mg/dL (NEGATIVE) 08/29/18 19:15 Urine Ketones NEGATIVE mg/dL (NEGATIVE) 08/29/18 19:15 Urine Blood NEGATIVE (NEGATIVE) 08/29/18 19:15 Urine Nitrate POSITIVE (NEGATIVE) H 08/29/18 19:15 Urine Bilirubin NEGATIVE (NEGATIVE) 08/29/18 19:15 Urine Urobilinogen 0.2 E.U./dL (0.2 - 1.0) 08/29/18 19:15 Ur Leukocyte Esterase LARGE (NEGATIVE) H 08/29/18 19:15 Urine RBC 2-5 /hpf (0-5) 08/29/18 19:15 Urine WBC 50-100 /hpf (0-5) H 08/29/18 19:15 Ur Epithelial Cells FEW /lpf (FEW) 08/29/18 19:15 Urine Bacteria 4+ /hpf (NONE SEEN) H 08/29/18 19:15 - Physical Exam Vitals and I&O: Vital Signs Temp 97 F 09/01/18 03:41 Pulse 64 09/01/18 07:52 Resp 18 09/01/18 07:52 BP 169/82 09/01/18 03:41 Pulse Ox 97 09/01/18 07:52 Intake & Output 08/31/18 09/01/18 09/01/18 18:59 06:59 18:59 Intake Total 1592 120 Balance 1592 120 Weight (lbs) 60.328 kg 60.328 kg Intake: Intake, IV Amount 992 D5-0.45NS 1,000 ml @ 80 992 mls/hr IV .[id number] [facility] Rx #:[id number] Oral 600 120 Other: # Voids 3 3 # Bowel Movements 1 Weight Source Bedscale Bedscale Active Medications: Current Medications Acetaminophen (Tylenol) 650 mg PO Q4H PRN PRN Reason: Pain (Moderate) Stop: 10/29/18 01:02 Albuterol Sulfate (Albuterol 2.5mg/3ml Neb Ud) 2.5 mg HHN Q2HRT PRN PRN Reason: Shortness of Breath or Wheeze Stop: 10/28/18 23:17 Ascorbic Acid (Vitamin C) 500 mg PO DAILY [facility] Stop: 10/29/18 08:59 Last Admin: 08/31/18 08:29 Dose: 500 mg Benztropine Mesylate (Cogentin) 2 mg PO BID [facility] Stop: 10/29/18 08:59 Last Admin: 08/31/18 16:10 Dose: 2 mg Budesonide (Pulmicort) 0.25 mg HHN BIDRT [facility] Stop: 10/29/18 06:59 Last Admin: 09/01/18 07:51 Dose: 0.25 mg Hydralazine HCl (Apresoline) 50 mg PO Q12H [facility] Stop: 10/28/18 23:29 Last Admin: 09/01/18 00:14 Dose: 50 mg Ferric Sodium Gluconate Complex 125 mg/ Sodium Chloride 110 mls @ 100 mls/hr IV Q24HR [facility] Stop: 09/08/18 15:29 Last Admin: 08/31/18 16:10 Dose: 100 mls/hr Dextrose/Sodium Chloride (D5-0.45ns) 1,000 mls @ 50 mls/hr IV .Q20H [facility] Stop: 10/30/18 15:29 Last Admin: 08/31/18 16:10 Dose: 50 mls/hr Piperacillin Sod/Tazobactam (Sod 3.375 gm/ Sodium Chloride) 100 mls @ 100 mls/ hr IV Q8HR [facility]; Protocol Stop: 10/31/18 04:59 Last Admin: 09/01/18 05:38 Dose: 100 mls/hr Ipratropium [place] (Atrovent Neb 0.5mg/2.5ml) 0.5 mg HHN Q2HRT PRN PRN Reason: Shortness of Breath or Wheeze Stop: 10/28/18 23:17 Levothyroxine Sodium (Synthroid) 0.1 mg PO QDAC [facility] Stop: 10/29/18 07:29 Last Admin: 09/01/18 06:48 Dose: 0.1 mg Loperamide HCl (Imodium) 2 mg PO BID PRN PRN Reason: Diarrhea Stop: 10/28/18 23:15 Mesalamine (Pentasa) 1,500 mg PO DAILY [facility] Stop: 10/30/18 08:59 Last Admin: 08/31/18 08:29 Dose: 1,500 mg Ondansetron HCl (Zofran) 4 mg IV Q8H PRN PRN Reason: Nausea / Vomiting Stop: 10/28/18 23:17 Pantoprazole Sodium (Protonix) 40 mg PO QDAC [facility] Stop: 10/29/18 07:29 Last Admin: 09/01/18 06:48 Dose: 40 mg Quetiapine Fumarate (Seroquel) 25 mg PO HS [facility]; Protocol Stop: 10/29/18 20:59 Last Admin: 08/31/18 20:07 Dose: 25 mg Vitamin B Complex/Vit C/Folic Acid (Vitamin B Complex W/Vitamin C) 1 tab PO DAILY [facility] Stop: 10/29/18 08:59 Last Admin: 08/31/18 08:28 Dose: 1 tab General: lethargic, demented HEENT: NC/AT, PERRLA, EOMI Neck: Supple, No JVD Lungs: congested Cardiovascular: RRR, Normal S1, Normal S2, with murmur Abdomen: soft, non-tender, thin, non-distended, positive bowel sound Extremities: excoriation, contracture, ulcers stage 2 Neurological: no change, disorganized - Procedures Procedures: Procedures Procedure Code Date BUNIONECTOMY NEC 77.59 11/25/05 CORRECTION HALLUX VALGUS 87461 11/25/05 GROUP PSYCHOTHERAPY 79510 07/17/03 INDIVID PSYCHOTHERAP NEC 94.39 01/10/05 [facility]AC GROUP PSYTX 82502 07/16/00 OTHER GROUP THERAPY 94.44 11/02/10 RECREATIONAL THERAPY 93.81 11/02/10 Internal Medicine Assmt/Plan - Assessment Assessment: ASSESSMENT AND PLAN: Generalized weakness, UTI, leukocytosis, anemia, hyponatremia, renal insufficiency/dehydration, hyperglycemia, hypothyroidism and psychiatric disorder. - Plan Plan: PLAN: Continue the patient on IV hydration. Monitor for any signs or symptoms of fluid overload. We will follow the patient's urine culture. We will monitor renal function. We will correct the patient's electrolyte abnormalities. We will review the patient's chest x-ray, follow blood culture. We will admit the patient to telemetry. lolis self and son Nutritional Asmnt/Malnutr-PDOC - Dietary Evaluation Malnutrition Findings (Please click <Entered> for more info): Nutritional Asmnt/Malnutrition Start: 08/30/18 13: 33 Text: Status: Active Freq: Protocol: Document 08/30/18 14:02 LORIN (Rec: 08/30/18 14:08 LORIN [email or web address]) Nutritional Asmnt/Malnutrition Patient General Information Nutritional Screening High Risk Diagnosis UTI, Dehydration Pertinent Medical Hx/Surgical Hx HTN, Hypothyroidism, Psych Disorder, CHF, Inflammatory Bowel Disorder Subjective Information [place] screening was at high risk. Pt f/u downgraded to low risk d/t adequate PO intake and tolerance to meal/diet order. Pt is a 83 year old female admitted from nursing facility c/o generalized weakness x 3 days. Per HEDIS REGISTERED NURSE RN (Chel), Pt ate 80% Breakfast and 50% lunch today. HT: 54 WT: 122 LB (55.45 KG) BMI: 20.94 (Normal) GI: WNL, Flat, Soft, Non- Tender BM: Not Noted I/O: 981.333/Not Noted Skin: Warm, dry, Elastic Wound: Skin tear on coccyx Chavez: 13 Diet Order: Soft Estimated Energy Needs: ( Geriatric, CBW) 0649-3939 KCALS (25-30 KCALS/ KG) 55-67 G PRO (1.0-1.2 G/KG) 5697-7703 ML (25-30 ML/KG) Current Diet Order/ Nutrition Support Soft Pertinent Medications Albuterol (PRN), Vit C, D5-0. 45ns 1000mls @80 mls/hr IV Q 12H30M, Synthroid, Zofran (PRN ), Protonix, Vit B Complex w/ Vit-C Pertinent Labs 7/24 Hgb/Hct: 8.7/26.1, Na 133 , BUN/Cr 34/1.0, Glucose 142, Alb 2.9 Nutritional Hx/Data Height 1.63 m Height (Calculated Centimeters) 162.6 Current Weight (lbs) 55.338 kg Weight (Calculated Kilograms) 55.3 Weight (Calculated Grams) 37478.3 [place] Body Weight 54.7 KG % [place] Body Weight 101 Body Mass Index (BMI) 20.9 Weight Status Approriate GI Symptoms GI Symptoms None Last BM BM: Not Noted Skin Integrity/Comment: Warm, dry, Elastic Current %PO Fair (50-74%) Estimated Nutritional Goals BEE in Kcals: Using Current wt Calories/Kcals/Kg 25-30 Kcals Calculated 0281-9151 Protein: Using Current wt Protein g/k.0-1.2 Protein Calculated 55-67 Fluid: ml 0006-1511 ML (25-30 ML/KG) Nutritional Problem 1. Problem Problem Altered Nutrition Related Labs Etiology possible dehydration Signs/Symptoms: Labs Result on 08/29/18 Na 133, BUN 34, Glucose 142 Malnutrition Related to Morbid Obesity Malnutrition related to morbid obesity No Intervention/Recommendation Comments 1. Continue with soft diet as ordered. Expected Outcomes/Goals Expected Outcomes/Goals 1.PO intake to meet 75% of nutritional needs. 2.Monitor PO intake, wt, skin integrity, nutrition related labs to trend WNL. 3.F/U as low risk in 7 days,
[2018-09-01] MEDS: Vitamin B Complex w/Vitamin C Tab PO SCH (10:03)
[2018-09-01] MEDS: Multivitamin w/ Minerals Tab PO SCH (10:04)
[2018-09-01] MEDS: Benztropine 1 MG TAB PO SCH ×2 (10:04→17:11)
[2018-09-01] MEDS: Mesalamine 250 mg ER Cap PO SCH (10:25)
[2018-09-01] MEDS: Sodium Ferric Gluconate 125 MG in Sodium Chloride 0.9% 100 ML IV SCH (17:10)
[2018-09-02] MEDS: D5-0.45NS 1,000 ML IV SCH (04:21)
[2018-09-02] MEDS: Pantoprazole 40 mg EC Tab PO SCH (06:44)
[2018-09-02] MEDS: Levothyroxine 0.1 Mg Tab PO SCH (06:44)
[2018-09-02] MEDS: Budesonide 0.5 Mg/2 mL Ud HHN SCH ×2 (07:15→19:40)
[2018-09-02] MEDS: Multivitamin w/ Minerals Tab PO SCH (08:29)
[2018-09-02] MEDS: Benztropine 1 MG TAB PO SCH ×2 (08:30→16:07)
[2018-09-02] MEDS: Vitamin B Complex w/Vitamin C Tab PO SCH (08:30)
[2018-09-02] MEDS: Mesalamine 250 mg ER Cap PO SCH (08:30)
--- NOTE | 2018-09-02 11:42 | Internal Medicine Prog Note ---
Internal Medicine Subjective - Subjective Patient seen and examined:: with staff, chart reviewed Patient is:: asleep, non-verbal, non-interactive, in bed Patient Complaints of:: congestion Per staff patient has:: no adverse event, no episodes of fall, poor appetite, refusing care Internal Medicine Objective - Results Result Diagrams: 09/01/18 06:15 09/01/18 06:15 Recent Labs: Laboratory Last Values WBC 6.4 Th/cmm (4.8-10.8) 09/01/18 06:15 RBC 3.05 Mil/cmm (3.80-5.20) L 09/01/18 06:15 Hgb 8.1 gm/dL (12-16) L 09/01/18 06:15 Hct 24.2 % (41.0-60) L 09/01/18 06:15 MCV 79.3 fl (81-100) L 09/01/18 06:15 MCH 26.6 pg (27.0-31.0) L 09/01/18 06:15 MCHC Differential 33.5 pg (28.0-36.0) 09/01/18 06:15 RDW 15.9 % (11.5-20.0) 09/01/18 06:15 Plt Count 497 Th/cmm (150-400) H 09/01/18 06:15 MPV 6.3 fl 09/01/18 06:15 Neutrophils % 69.5 % (40.0-80.0) 09/01/18 06:15 Lymphocytes % 14.6 % (20.0-50.0) L 09/01/18 06:15 Monocytes % 12.5 % (2.0-10.0) H 09/01/18 06:15 Eosinophils % 3.2 % (0.0-5.0) 09/01/18 06:15 Basophils % 0.2 % (0.0-2.0) 09/01/18 06:15 PT 10.4 SECONDS (9.5-11.5) 08/29/18 18:50 INR 1.00 (0.5-1.4) 08/29/18 18:50 PTT (Actin FS) 27.2 SECONDS (26.0-38.0) 08/29/18 18:50 Sodium 133 mEq/L (136-145) L 09/01/18 06:15 Potassium 3.5 mEq/L (3.5-5.1) 09/01/18 06:15 Chloride 105 mEq/L (98-107) 09/01/18 06:15 Carbon Dioxide 21.9 mEq/L (21.0-31.0) 09/01/18 06:15 Anion Gap 9.6 (7.0-16.0) 09/01/18 06:15 BUN 18 mg/dL (7-25) 09/01/18 06:15 Creatinine 0.8 mg/dL (0.6-1.2) 09/01/18 06:15 Est GFR ( Amer) TNP 09/01/18 06:15 Est GFR (Non-Af Amer) TNP 09/01/18 06:15 BUN/Creatinine Ratio 22.5 09/01/18 06:15 Glucose 86 mg/dL (70-105) 09/01/18 06:15 Whole Bld Lactic Acid 1.67 mmol/L (0.60-1.99) 08/29/18 18:50 Calcium 9.1 mg/dL (8.6-10.3) 09/01/18 06:15 Total Bilirubin 0.2 mg/dL (0.3-1.0) L 08/31/18 06:00 AST 12 U/L (13-39) L 08/31/18 06:00 ALT 6 U/L (7-52) L 08/31/18 06:00 Alkaline Phosphatase 56 U/L (34-104) 08/31/18 06:00 Ammonia 26 umol/L (16-53) 08/31/18 06:00 Creatine Kinase 158 U/L (30-223) 08/29/18 18:50 Troponin I 0.01 ng/mL (0.01-0.05) 08/29/18 18:50 B-Natriuretic Peptide 164.0 pg/mL (5.0-100.0) H 08/31/18 06:00 Total Protein 5.5 gm/dL (6.0-8.3) L 08/31/18 06:00 Albumin 2.3 gm/dL (3.7-5.3) L 08/31/18 06:00 Globulin 3.2 gm/dL 08/31/18 06:00 Albumin/Globulin Ratio 0.7 (1.0-1.8) L 08/31/18 06:00 Amylase 20 U/L (29-103) L 08/29/18 18:50 Lipase 7 U/L (11-82) L 08/29/18 18:50 Urine Source MIDSTREAM 08/29/18 19:15 Urine Color YELLOW 08/29/18 19:15 Urine Clarity CLOUDY (CLEAR) H 08/29/18 19:15 Urine pH 5.5 (4.6 - 8.0) 08/29/18 19:15 Ur Specific [place] 1.010 (1.005-1.030) 08/29/18 19:15 Urine Protein TRACE mg/dL (NEGATIVE) 08/29/18 19:15 Urine Glucose (UA) NEGATIVE mg/dL (NEGATIVE) 08/29/18 19:15 Urine Ketones NEGATIVE mg/dL (NEGATIVE) 08/29/18 19:15 Urine Blood NEGATIVE (NEGATIVE) 08/29/18 19:15 Urine Nitrate POSITIVE (NEGATIVE) H 08/29/18 19:15 Urine Bilirubin NEGATIVE (NEGATIVE) 08/29/18 19:15 Urine Urobilinogen 0.2 E.U./dL (0.2 - 1.0) 08/29/18 19:15 Ur Leukocyte Esterase LARGE (NEGATIVE) H 08/29/18 19:15 Urine RBC 2-5 /hpf (0-5) 08/29/18 19:15 Urine WBC 50-100 /hpf (0-5) H 08/29/18 19:15 Ur Epithelial Cells FEW /lpf (FEW) 08/29/18 19:15 Urine Bacteria 4+ /hpf (NONE SEEN) H 08/29/18 19:15 - Physical Exam Vitals and I&O: Vital Signs Temp 96.3 F 09/02/18 04:00 Pulse 71 09/02/18 10:34 Resp 18 09/02/18 07:16 BP 161/73 09/02/18 10:34 Pulse Ox 95 09/02/18 07:16 Intake & Output 09/01/18 09/02/18 09/02/18 18:59 06:59 18:59 Intake Total 1700 100 Balance 1700 100 Weight (lbs) 60.328 kg 60.328 kg Intake: Intake, IV Amount 1100 100 D5-0.45NS 1,000 ml @ 50 1000 mls/hr IV .Q20H [facility] Rx#: [id number] Piperacillin Sodium/ 100 100 Tazobact 3.375 gm In Sodium Chloride 0.9% 100 ml @ 100 mls/hr IV Q8HR [facility] Rx#:[id number] Oral 600 Other: # Voids 3 2 # Bowel Movements 1 Weight Source Bedscale Bedscale Active Medications: Current Medications Acetaminophen (Tylenol) 650 mg PO Q4H PRN PRN Reason: Pain (Moderate) Stop: 10/29/18 01:02 Albuterol Sulfate (Albuterol 2.5mg/3ml Neb Ud) 2.5 mg HHN Q2HRT PRN PRN Reason: Shortness of Breath or Wheeze Stop: 10/28/18 23:17 Ascorbic Acid (Vitamin C) 500 mg PO DAILY [facility] Stop: 10/29/18 08:59 Last Admin: 09/02/18 08:30 Dose: 500 mg Benztropine Mesylate (Cogentin) 2 mg PO BID [facility] Stop: 10/29/18 08:59 Last Admin: 09/02/18 08:30 Dose: 2 mg Budesonide (Pulmicort) 0.25 mg HHN BIDRT [facility] Stop: 10/29/18 06:59 Last Admin: 09/02/18 07:15 Dose: 0.25 mg Hydralazine HCl (Apresoline) 50 mg PO Q12H [facility] Stop: 10/28/18 23:29 Last Admin: 09/02/18 10:34 Dose: 50 mg Ferric Sodium Gluconate Complex 125 mg/ Sodium Chloride 110 mls @ 100 mls/hr IV Q24HR [facility] Stop: 09/08/18 15:29 Last Admin: 09/01/18 17:10 Dose: 100 mls/hr Dextrose/Sodium Chloride (D5-0.45ns) 1,000 mls @ 50 mls/hr IV .Q20H [facility] Stop: 10/30/18 15:29 Last Admin: 09/02/18 04:21 Dose: 50 mls/hr Piperacillin Sod/Tazobactam (Sod 3.375 gm/ Sodium Chloride) 100 mls @ 100 mls/ hr IV Q8HR [facility]; Protocol Stop: 10/31/18 04:59 Last Admin: 09/02/18 04:20 Dose: 100 mls/hr Ipratropium Drury (Atrovent Neb 0.5mg/2.5ml) 0.5 mg HHN Q2HRT PRN PRN Reason: Shortness of Breath or Wheeze Stop: 10/28/18 23:17 Levothyroxine Sodium (Synthroid) 0.1 mg PO QDAC [facility] Stop: 10/29/18 07:29 Last Admin: 09/02/18 06:44 Dose: 0.1 mg Loperamide HCl (Imodium) 2 mg PO BID PRN PRN Reason: Diarrhea Stop: 10/28/18 23:15 Mesalamine (Pentasa) 1,500 mg PO DAILY [facility] Stop: 10/30/18 08:59 Last Admin: 09/02/18 08:30 Dose: 1,500 mg Ondansetron HCl (Zofran) 4 mg IV Q8H PRN PRN Reason: Nausea / Vomiting Stop: 10/28/18 23:17 Pantoprazole Sodium (Protonix) 40 mg PO QDAC [facility] Stop: 10/29/18 07:29 Last Admin: 09/02/18 06:44 Dose: 40 mg Quetiapine Fumarate (Seroquel) 25 mg PO HS [facility]; Protocol Stop: 10/29/18 20:59 Last Admin: 09/01/18 20:13 Dose: 25 mg Vitamin B Complex/Vit C/Folic Acid (Vitamin B Complex W/Vitamin C) 1 tab PO DAILY [facility] Stop: 10/29/18 08:59 Last Admin: 09/02/18 08:30 Dose: 1 tab General: lethargic, demented HEENT: NC/AT, PERRLA, EOMI Neck: Supple, No JVD Lungs: congested Cardiovascular: RRR, Normal S1, Normal S2, with murmur Abdomen: soft, non-tender, thin, non-distended, positive bowel sound Extremities: excoriation, contracture, ulcers stage 2 Neurological: no change, disorganized - Procedures Procedures: Procedures Procedure Code Date BUNIONECTOMY NEC 77.59 11/25/05 CORRECTION HALLUX VALGUS 17565 11/25/05 GROUP PSYCHOTHERAPY 73749 07/17/03 INDIVID PSYCHOTHERAP NEC 94.39 01/10/05 INTAC GROUP PSYTX 65190 07/16/00 OTHER GROUP THERAPY 94.44 11/02/10 RECREATIONAL THERAPY 93.81 09/27/11 Internal Medicine Assmt/Plan - Assessment Assessment: ASSESSMENT AND PLAN: Generalized weakness, UTI, leukocytosis, anemia, hyponatremia, renal insufficiency/dehydration, hyperglycemia, hypothyroidism and psychiatric disorder. - Plan Plan: PLAN: Continue the patient on IV hydration. Monitor for any signs or symptoms of fluid overload. We will follow the patient's urine culture. We will monitor renal function. We will correct the patient's electrolyte abnormalities. We will review the patient's chest x-ray, follow blood culture. We will admit the patient to telemetry. lolis self and son Nutritional Asmnt/Malnutr-PDOC - Dietary Evaluation Malnutrition Findings (Please click <Entered> for more info): Nutritional Asmnt/Malnutrition Start: 08/30/18 13: 33 Text: Status: Active Freq: Protocol: Document 08/30/18 14:02 LORIN (Rec: 08/30/18 14:08 LORIN [email or web address]) Nutritional Asmnt/Malnutrition Patient General Information Nutritional Screening High Risk Diagnosis UTI, Dehydration Pertinent Medical Hx/Surgical Hx HTN, Hypothyroidism, Psych Disorder, CHF, Inflammatory Bowel Disorder Subjective Information IA screening was at high risk. Pt f/u downgraded to low risk d/t adequate PO intake and tolerance to meal/diet order. Pt is a 83 year old female admitted from nursing facility c/o generalized weakness x 3 days. Per FILLING MACHINE OPERATOR (Chel), Pt ate 80% Breakfast and 50% lunch today. HT: 54 WT: 122 LB (55.45 KG) BMI: 20.94 (Normal) GI: WNL, Flat, Soft, Non- Tender BM: Not Noted I/O: 981.333/Not Noted Skin: Warm, dry, Elastic Wound: Skin tear on coccyx Chavez: 13 Diet Order: Soft Estimated Energy Needs: ( Geriatric, CBW) 2217-9994 KCALS (25-30 KCALS/ KG) 55-67 G PRO (1.0-1.2 G/KG) 3466-5720 ML (25-30 ML/KG) Current Diet Order/ Nutrition Support Soft Pertinent Medications Albuterol (PRN), Vit C, D5-0. 45ns 1000mls @80 mls/hr IV Q 12H30M, Synthroid, Zofran (PRN ), Protonix, Vit B Complex w/ Vit-C Pertinent Labs 08/29 Hgb/Hct: 8.7/26.1, Na 133 , BUN/Cr 34/1.0, Glucose 142, Alb 2.9 Nutritional Hx/Data Height 1.63 m Height (Calculated Centimeters) 162.6 Current Weight (lbs) 55.338 kg Weight (Calculated Kilograms) 55.3 Weight (Calculated Grams) 16686.3 [place] Body Weight 54.7 KG % [place] Body Weight 101 Body Mass Index (BMI) 20.9 Weight Status Approriate GI Symptoms GI Symptoms None Last BM BM: Not Noted Skin Integrity/Comment: Warm, dry, Elastic Current %PO Fair (50-74%) Estimated Nutritional Goals BEE in Kcals: Using Current wt Calories/Kcals/Kg 25-30 Kcals Calculated 3960-1711 Protein: Using Current wt Protein g/k.0-1.2 Protein Calculated 55-67 Fluid: ml 7524-9908 ML (25-30 ML/KG) Nutritional Problem 1. Problem Problem Altered Nutrition Related Labs Etiology possible dehydration Signs/Symptoms: Labs Result on 08/29/18 Na 133, BUN 34, Glucose 142 Malnutrition Related to Morbid Obesity Malnutrition related to morbid obesity No Intervention/Recommendation Comments 1. Continue with soft diet as ordered. Expected Outcomes/Goals Expected Outcomes/Goals 1.PO intake to meet 75% of nutritional needs. 2.Monitor PO intake, wt, skin integrity, nutrition related labs to trend WNL. 3.F/U as low risk in 7 days,
[2018-09-02] MEDS: Sodium Ferric Gluconate 125 MG in Sodium Chloride 0.9% 100 ML IV SCH (14:31)
[2018-09-03] MEDS: D5-0.45NS 1,000 ML IV SCH (06:31)
[2018-09-03] MEDS: Pantoprazole 40 mg EC Tab PO SCH (06:32)
[2018-09-03] MEDS: Levothyroxine 0.1 Mg Tab PO SCH (06:32)
[2018-09-03] MEDS: Budesonide 0.5 Mg/2 mL Ud HHN SCH (07:16)
[2018-09-03] MEDS: Mesalamine 250 mg ER Cap PO SCH ×2 (09:07→11:52)
[2018-09-03] MEDS: Vitamin B Complex w/Vitamin C Tab PO SCH ×2 (09:08→11:52)
[2018-09-03] MEDS: Multivitamin w/ Minerals Tab PO SCH ×2 (09:08→11:52)
[2018-09-03] MEDS: Benztropine 1 MG TAB PO SCH ×2 (09:08→11:52)
--- NOTE | 2018-09-03 16:02 | Discharge Summary ---
DATE OF DISCHARGE: 09/03/2018 CHIEF COMPLAINT: Generalized weakness. FINAL DIAGNOSES: Urinary tract infection, extended-spectrum beta-lactamase, generalized weakness, leukocytosis, sepsis, anemia, hyponatremia, renal insufficiency, dehydration, hyperglycemia, hypothyroidism, psych disorder, and inflammatory bowel disorder. HISTORY: This is an 83-year-old female with history of ____ psych disorder, CHF, inflammatory bowel disorder, admitted from nursing facility secondary to not feeling well. The patient was brought in the ER, noted to be dehydrated with urinary tract infection. The patient is admitted for further management. PHYSICAL EXAMINATION: VITAL SIGNS: Blood pressure 148/60, respirations 19, pulse 71, and temperature 97.8. GENERAL: Elderly female, appears her stated age. NECK: Supple. No mass. LUNGS: Equal breath sounds with a few rhonchi. HEART: Regular rate with systolic ejection murmur. ABDOMEN: Soft, nontender. Positive bowel sounds. EXTREMITIES: Positive excoriation and contractures. NEUROLOGIC: Limited. HOSPITAL COURSE: The patient was admitted to telemetry, continue on aggressive IV hydration and IV antibiotic. Urine culture came back E. coli ESBL with multidrug resistant. The patient continued on IV Zosyn. The patient to be transferred to long-term acute care, son is agreeable. CONDITION ON DISCHARGE: Fair. OVERALL PROGNOSIS: Poor. DISCHARGE INSTRUCTIONS: The patient to continue IV antibiotic. The patient was seen by Dr. Wong ____ as well. JOB# [id number]
[2018-09-04 05:16] LABS: FERRITIN 62 ng/mL (15-150); IRON LC 12 ug/dL (27-139); TIBC (LC) 149 ug/dL (250-450); UIBC 137 ug/dL (118-369)
== END 2018-09-03 14:13 | DRG 871 ==
LOC: ER 18:16 → TELE 20:35
PROVIDERS: ADMIT Internal Medicine; ATTEND Internal Medicine
DX: A41.9 Sepsis, unspecified organism (principal); R53.2 Functional quadriplegia; E43 Unspecified severe protein-calorie malnutrition; N39.0 Urinary tract infection, site not specified; E87.1 Hypo-osmolality and hyponatremia; K51.90 Ulcerative colitis, unspecified, without complications; D64.9 Anemia, unspecified; E86.0 Dehydration; F31.9 Bipolar disorder, unspecified; E03.9 Hypothyroidism, unspecified; I11.0 Hypertensive heart disease with heart failure; I50.9 Heart failure, unspecified; F03.90 Unspecified dementia, unspecified severity, without behavioral disturbance, psychotic disturbance, mood disturbance, and anxiety; Z16.12 Extended spectrum beta lactamase (ESBL) resistance; B96.20 Unspecified Escherichia coli [E. coli] as the cause of diseases classified elsewhere; R73.9 Hyperglycemia, unspecified; Z88.2 Allergy status to sulfonamides; Z88.8 Allergy status to other drugs, medicaments and biological substances; Z82.49 Family history of ischemic heart disease and other diseases of the circulatory system; Z79.899 Other long term (current) drug therapy; Z68.22 Body mass index [BMI] 22.0-22.9, adult
CPT/HCPCS: 36415-UA; 71045-TC; 80048-TC; 80053-TC; 81001-TC; 82140-TC; 82150-TC; 82550-TC; 82728-90; 83540-90; 83550-90; 83605; 83690-TC; 83880-TC; 84484-TC; 85007-TC; 85025-TC; 85610-TC; 85730-TC; 87086-90; 87230-TC; 93005; 94640; 94760; J0692; J0696; J2543; J2916; J7030; Z7610